=== PATIENT | female | born 1970 ===

== ENCOUNTER 2016-10-27 07:31 | Day surgery (SDC) | payer OTHER ==
[2016-10-27 07:59] VITALS: BMI 24.0
[2016-10-27] MEDS ORDERED: Lactated Ringer's 500 ML IV ONE (09:07)
--- NOTE | 2016-10-27 09:08 | CP.SDSHP ---
Same Day Surgery H & P - History Proposed Procedure: EGD Pre-Op Diagnosis: SEE NOTES - Previous Medical/Surgical History Misc: Other Pain: 4.Moderate Pain - Allergies Allergies: Allergies No Known Allergies Allergy (Verified 10/27/16 07:58) - Physical Exam General Appearance: N Vital Signs: Vital Signs 10/27/16 08:10 Temperature 97.8 F Pulse Rate 69 Respiratory 19 Rate Blood Pressure 104/70 O2 Sat by Pulse 100 Oximetry Mental Status: Alert & Oriented x3 Neuro: WNL Heart: WNL Lungs: WNL GI: Other - {Optional Preform as Required} Breast: WNL Abdomen: Other Rectal: Other Integument: WNL : WNL Ortho: WNL ENT: WNL - Impression Pt. Evaluated Today:Candidate for Anesthesia & Procedure: Yes - Date & Time Time: 09:08 Short Stay Discharge - Short Stay Discharge Admitting Diagnosis/Reason for Visit: DYSPEPSIA Disposition: HOME/ ROUTINE
[2016-10-27] MEDS ORDERED: Lidocaine Hydrochloride 5 ML INJ ONE (09:09)
[2016-10-27] MEDS ORDERED: Pantoprazole 40 mg EC Tab PO ONE (09:09)
[2016-10-27] MEDS ORDERED: Propofol 10 mg/ml Inj (20 ML) ONE (09:09)
[2016-10-27] MEDS ORDERED: Belladonna-Phenobarbital PO ONE (09:15)
[2016-10-27 11:48] VITALS: TEMP 97.4
[2016-10-27 11:53] VITALS: RESP 18; O2SAT 98
[2016-10-27 11:56] VITALS: BP 111/60; PULSE 66
== END 2016-10-27 10:17 | disposition home or self-care (01) ==
LOC: C.ENDO 07:31
PROVIDERS: ATTEND Specialist
DX: K30 Functional dyspepsia (principal); K20.9 Esophagitis, unspecified; K29.70 Gastritis, unspecified, without bleeding; K44.9 Diaphragmatic hernia without obstruction or gangrene
CPT/HCPCS: 43239; 84703; 88305; 88342; J2704; J7120

== ENCOUNTER 2017-10-03 17:06 | Emergency (ER) | payer MEDICAID, OTHER ==
[2017-10-03 17:06] VITALS: BMI 24.0
[2017-10-03 17:20] VITALS: TEMP 98.1
--- NOTE | 2017-10-03 18:47 | C.PDOC ---
History Of Present Illness Pt was mopping floor at home, slipped and fell landing on right vertex of scalp. Denies loc, vomiting, neck pain. (+) headache. Time Seen by Provider: 10/03/17 18:24 Chief Complaint (Nursing): Headache History Per: Patient History/Exam Limitations: no limitations Onset/Duration Of Symptoms: Hrs Current Symptoms Are (Timing): Still Present Quality: Aching Associated Symptoms: denies: Vomiting Past Medical History Reviewed: Historical Data, Nursing Documentation, Vital Signs Vital Signs: Last Vital Signs Temp 98.1 F 10/03/17 18:57 Pulse 88 10/03/17 18:57 Resp 16 10/03/17 18:57 BP 106/82 10/03/17 18:57 Pulse Ox 97 10/03/17 22:43 - Medical History PMH: Gastritis, Mitral Valve Prolapse, Rheumatoid Arthritis Denies: Chronic Kidney Disease Surgical History: Appendectomy, Endoscopy - [facility] Procedures CLOS REDUCTION NASAL FX (09/24/00) Family History: States: No Known Family Hx - Social History Hx Alcohol Use: No Hx Substance Use: No - Immunization History Hx Tetanus Toxoid Vaccination: No Hx Influenza Vaccination: No Hx Pneumococcal Vaccination: No Review Of Systems Gastrointestinal: Negative for: Vomiting Musculoskeletal: Negative for: Neck Pain Neurological: Positive for: Headache. Negative for: Other (loss of consciousness) Physical Exam - Physical Exam Appears: Non-toxic, No Acute Distress Skin: Normal Color, Warm Head: Normacephalic, No Abrasion, No Laceration, Other (mild hematoma at right crown scalp ) Eye(s): bilateral: Normal Inspection, PERRL Ear(s): Bilateral: Normal Nose: Normal Oral Mucosa: Moist Tongue: Normal Appearing Lips: Normal Appearing Gingiva: Normal Appearing Neck: Normal, Normal ROM, No Midline Cervical Tenderness, No Paracervical Tenderness Chest: Symmetrical Back: Normal Inspection, No Vertebral Tenderness, No Paraspinal Tenderness Neurological/Psych: Oriented x3, Normal Speech, Normal Motor, Normal Sensation ED Course And Treatment O2 Sat by Pulse Oximetry: 97 (RA) Pulse Ox Interpretation: Normal Progress Note: Plan: Tylenol 975mg PO Reassessment Condition: Improved Disposition Counseled Patient/Family Regarding: Diagnosis, Need For Followup, Rx Given - Disposition Referrals: Meet Costa MD [Medical Doctor] - Disposition: HOME/ ROUTINE Disposition Time: 18:45 Condition: STABLE Additional Instructions: FOLLOW UP WITH DR. COSTA TOMORROW FOR RE-EVALUATION. IF VOMITING, WORSENING OF HEADACHE OR LETHARGY DEVELOP RETURN TO ED. Prescriptions: Acetaminophen [Pain Relief Extra Strength] 2 tab PO Q8H PRN #30 tablet PRN Reason: Pain, Moderate (4-7) Instructions: Contusion (DC), Minor Head Injury (DC) Forms: General Discharge Instructions, [facility] ([facility]), Work Excuse - Clinical Impression Clinical Impression: Contusion, Head ache - PA / [employer] / Resident Statement MD/DO has reviewed & agrees with the documentation as recorded. - Scribe Statement The provider has reviewed the documentation as recorded by the Scribe (Sarthak Almaguer) All medical record entries made by the Scribe were at my direction and personally dictated by me. I have reviewed the chart and agree that the record accurately reflects my personal performance of the history, physical exam, medical decision making, and the department course for this patient. I have also personally directed, reviewed, and agree with the discharge instructions and disposition.
[2017-10-03 19:10] VITALS: BP 106/82; PULSE 88; RESP 16
[2017-10-03 20:02] VITALS: O2SAT 97
== END 2017-10-03 19:00 | disposition home or self-care (01) ==
LOC: C.ER 17:06
DX: S00.03XA Contusion of scalp, initial encounter (principal); W01.0XXA Fall on same level from slipping, tripping and stumbling without subsequent striking against object, initial encounter; Y93.E5 Activity, floor mopping and cleaning; Y92.009 Unspecified place in unspecified non-institutional (private) residence as the place of occurrence of the external cause; R51 Headache